=== PATIENT | female | born 1980 | race Hispanic/Latino ===

== ENCOUNTER 2019-02-03 05:47 | Day surgery (SDC) | payer OTHER ==
[2019-01-27 09:20] VITALS: BMI 23.3
--- NOTE | 2019-02-02 22:23 | HP ---
HISTORY OF PRESENT ILLNESS: Ms. Fan is known to us from previous evaluation of a C6 radiculopathy with a C5-6 disk osteophyte complexes seen on MRI and she is over this interval times since initial evaluation and has pursued nonsurgical modalities of physical therapy, injections, and medications, all of which only provided short-term relief with recurrence of pain and now has progressed to a point where she has difficulty sleeping and it is starting to limit her physical activity. She hopes to move forward with surgery if possible. PAST MEDICAL HISTORY: Significant for anxiety and seasonal allergies. PAST SURGICAL HISTORY: None listed. CURRENT MEDICATIONS: Effexor and Zyrtec. ALLERGIES: NO KNOWN DRUG ALLERGIES. PHYSICAL EXAMINATION: GENERAL: The patient is alert and oriented x3. MUSCULOSKELETAL: Gait is normal. No ataxia. Upper extremity motor exam reveals 5/5 strength in the bilateral upper extremities. Reflexes are equal and present bilaterally at the biceps tendon. REVIEW OF SYSTEMS: The patient denies headache or rhinorrhea. Denies nausea, vomiting, or stool incontinence. Denies urinary incontinence. Reports back, shoulder, and arm pains bilaterally. Reports numbness and tingling in the arms bilaterally. ASSESSMENT: Cervical radiculopathy. PLAN: Dr. Rodney met with the patient, reviewed imaging, advocated for a C5-6 ACDF. He explained to the patient the risks, benefits, and alternatives to the procedure. The patient expressed understanding and elected to move forward with surgery as discussed. I do believe the patient is mentally competent capable of making medical decisions for herself. We will move forward with surgery as planned. Job ID: [id number]
[2019-02-03] MEDS ORDERED: Midazolam HCl 2 mg/2 ml Vial ONE (06:38)
[2019-02-03] MEDS ORDERED: Thrombin 5000 UNITS/5 ML VIAL ONE (06:43)
[2019-02-03] MEDS ORDERED: Fentanyl 100 MCG/2 ML VIAL ONE ×3 (06:52→09:14)
[2019-02-03] MEDS ORDERED: SUGAMMADEX SODIUM 200 MG/2 ML VIAL ONE (06:58)
[2019-02-03] MEDS ORDERED: HYDROmorphone 2 MG/ML VIAL ONE (08:12)
[2019-02-03] MEDS ORDERED: HYDROcodone/Acetaminophen 5/325 mg Tablet ONE (10:17)
--- NOTE | 2019-02-03 10:27 | OP ---
DATE OF PROCEDURE: 02/03/2019 CUSTOMER ADVOCACY MANAGER: Jorje Amado PA-C INDICATION: Pain. DIAGNOSIS: Cervical radiculopathy. PROCEDURE PERFORMED: Anterior cervical diskectomy and fusion, C5-C6. ANESTHESIA: General. DESCRIPTION OF PROCEDURE: The patient was brought into the operating room and placed under general anesthesia. She was placed on table in supine position. A transverse incision was planned over the lateral aspect of the neck on the right. After prepping and draping and after an appropriate preoperative pause, the incision was created. The underlying platysma muscle was identified and incised. A blunt tissue plane anterior to the sternocleidomastoid muscle was used to gain access to the prevertebral space. Self-retaining retractors were placed in the wound for optimal exposure. After confirming the appropriate level with C-arm fluoroscopy, an annulotomy was performed at C5-C6 disk space. All disk material as well as anterior and posterior osteophytes were removed. After decompressing the C5-C6 disks segment, a 6-mm lordotic PEEK cage packed with allograft and autograft material was placed within the interbody space. An anterior cervical plate was then fashioned to the front of the spine and secured with a total of 4 fixed screws. Midline and lateral structures were then inspected and found to be free from significant trauma. The wound was irrigated. Hemostasis was maintained throughout. The wound was then closed in anatomic layers and a pressure dressing was applied. There were no known procedural complications. Job ID: [id number]
[2019-02-03] MEDS ORDERED: PROPOFOL 200 MG/20 ML VIAL ONE (16:44)
[2019-02-03] MEDS ORDERED: Rocuronium Bromide 10 MG/ML (10ML VIAL) ONE (16:44)
[2019-02-03] MEDS ORDERED: Dexamethasone 20 MG/5 ML VIAL ONE (16:44)
[2019-02-03] MEDS ORDERED: PHENYLEPHRINE-NS 100 MCG/ML 10 ML SYRINGE ONE (16:44)
[2019-02-03] MEDS ORDERED: Lidocaine 1% PF 5 ML VIAL ONE (16:44)
[2019-02-03] MEDS ORDERED: Ondansetron PF 4 MG/2 ML Vial ONE (16:44)
== END 2019-02-03 11:28 | disposition home or self-care (01) ==
LOC: SDC 05:47
PROVIDERS: ATTEND Neurological Surgery
PROC: 0RT30ZZ Resection of Cervical Vertebral Disc, Open Approach (ICD-10-PCS; principal; 2019-02-03)
PROC: 0RG10A0 Fusion of Cervical Vertebral Joint with Interbody Fusion Device, Anterior Approach, Anterior Column, Open Approach (ICD-10-PCS; principal; 2019-02-03)
DX: M54.12 Radiculopathy, cervical region (principal); J30.2 Other seasonal allergic rhinitis; F41.9 Anxiety disorder, unspecified; Z79.899 Other long term (current) drug therapy
CPT/HCPCS: 76000; C1713; C1776; J0131; J0690; J1170; J2250; J3010

== ENCOUNTER 2022-10-13 15:44 | Outpatient (CLI) | payer BC | END 2022-10-13 15:45 | disposition home or self-care (01) | LOC: BICRAD 15:44 | PROVIDERS: ATTEND Family Medicine | DX: J16.8 Pneumonia due to other specified infectious organisms (principal) | CPT/HCPCS: 71046 ==